=== PATIENT | female | born 1955 | race African-American/Black ===

== ENCOUNTER 2022-08-11 12:11 | Emergency (ER) | payer SELFPAY ==
[~2022-08-11] VITALS: Ht 175.3 cm; Wt 82.0 kg
[2022-08-11] MEDS ORDERED: HYDROCODONE/ACETAMINOPHEN 10/325MG TABLET PO ONE (13:15)
[2022-08-11 14:21] VITALS: BP 118/88
[2022-08-11 14:38] LABS: CHLORIDE 108 mEq/L (98-107)
[2022-08-11] MEDS ORDERED: ACET-2708 MT (16:17)
[2022-08-12] MEDS ORDERED: IOHEXOL-350 100 ML BOTTLE ONE (10:18)
== END 2022-08-11 17:50 | disposition home or self-care (01) ==
LOC: ER 12:11
DX: R51.9 Headache, unspecified (principal); I10 Essential (primary) hypertension; J45.909 Unspecified asthma, uncomplicated
CPT/HCPCS: 36415; 70496; 70498; 80048; 99285; Q9967; Z7610